=== PATIENT | female | born 1980 | race African-American/Black ===

== ENCOUNTER 2017-10-04 14:21 | Emergency (ER) | payer BC, OTHER ==
--- NOTE | 2017-10-04 15:16 | ER Document Report ---
ED Medical Screen (RME) - General Chief Complaint: Chest Pain Stated Complaint: CHEST PAIN Time Seen by Provider: 10/04/17 15:06 Notes: 37-year-old female patient with lupus on Plaquenil, methotrexate, and low-dose prednisone. She reports right sided chest pain that goes down the right arm which is worse with movement. There is some shortness of breath. There is no known history of injury or heavy lifting anytime recently. The right anterior chest wall and the pectoralis muscle are tender to palpate. The right upper arm is tender to palpate. She states she is unable to tell if this feels like it may be lupus related flareup. I have greeted and performed a rapid initial assessment of this patient. A comprehensive ED assessment and evaluation of the patient, analysis of test results and completion of the medical decision making process will be conducted by additional ED providers. TRAVEL OUTSIDE OF THE [place] IN LAST 30 DAYS: Yes - Related Data Allergies/Adverse Reactions: tomato Allergy (Verified 10/04/17 14:27) HIVES, ITCHING Past Medical History - Social History Chew tobacco use (# tins/day): No Frequency of alcohol use: None Drug Abuse: None Pulmonary Medical History: Reports: Hx Asthma - A CHILD Denies: Hx Tuberculosis Renal/ Medical History: Reports: Hx Ovarian Cysts. Denies: Hx Peritoneal Dialysis GI Medical History: Denies: Hx Hepatitis Infectious Medical History: Denies: Hx Hepatitis Past Surgical History: Reports: Hx Appendectomy - 2008, Hx Tubal Ligation - Immunizations Immunizations up to date: No Hx Diphtheria, Pertussis, Tetanus Vaccination: No Physical Exam - Vital signs Vitals: Temp Pulse Resp BP Pulse Ox 98.4 F 90 18 150/90 H 100 10/04/17 14:35 10/04/17 14:35 10/04/17 14:35 10/04/17 14:35 10/04/17 14:35 Course - Vital Signs Vital signs: Temp Pulse Resp BP Pulse Ox 98.4 F 90 18 150/90 H 100 10/04/17 14:35 10/04/17 14:35 10/04/17 14:35 10/04/17 14:35 10/04/17 14:35
[2017-10-04 15:36] LABS: ABSOLUTE EOSINOPHILS # (AUTO) 0.1 10^3/uL (0.0-0.6); ABSOLUTE LYMPHOCYTES (AUTO) 1.5 10^3/uL (0.5-4.7); ABSOLUTE MONOCYTES (AUTO) 0.8 10^3/uL (0.1-1.4); ABSOLUTE NEUT (AUTO) 2.3 10^3/uL (1.7-8.2); BASOPHILS % (AUTO) 0.5 % (0-2); EOSINOPHILS % (AUTO) 1.6 % (0-6); HEMATOCRIT 35.3 % (36.0-47.0); HEMOGLOBIN 11.6 g/dL (12.0-15.5); LYMPHOCYTES % (AUTO) 32.6 % (13-45); MEAN CORPUSCULAR HEMOGLOBIN 27.7 pg (27.0-33.4); MEAN CORPUSCULAR HGB CONC 32.8 g/dL (32.0-36.0); MEAN CORPUSCULAR VOLUME 85 fl (80-97); MONOCYTES % (AUTO) 17.4 % (3-13); PLATELET COUNT 236 10^3/uL (150-450); RED BLOOD COUNT 4.18 10^6/uL (3.72-5.28); RED CELL DISTRIBUTION WIDTH 13.7 % (11.5-14.0); SEGMENTED NEUTROPHILS % (AUTO) 47.9 % (42-78); TOTAL CELLS COUNTED % (AUTO) 100 %; WHITE BLOOD COUNT 4.7 10^3/uL (4.0-10.5)
--- NOTE | 2017-10-04 15:47 | RADIOLOGY REPORT (SQ) ---
EXAM DESCRIPTION: CHEST 2 VIEWS COMPLETED DATE/TIME: 10/04/2017 3:40 pm REASON FOR STUDY: R chest pain, SLE, on MTX,pred,plaquenil COMPARISON: 05/24/2011 EXAM PARAMETERS: NUMBER OF VIEWS: two views TECHNIQUE: Digital Frontal and Lateral radiographic views of the chest acquired. RADIATION DOSE: NA LIMITATIONS: none FINDINGS: LUNGS AND PLEURA: No opacities, masses or pneumothorax. No pleural effusion. MEDIASTINUM AND HILAR STRUCTURES: No masses or contour abnormalities. HEART AND VASCULAR STRUCTURES: Heart normal size. No evidence for failure. BONES: No acute findings. HARDWARE: None in the chest. OTHER: No other significant finding. IMPRESSION: NO ACUTE RADIOGRAPHIC FINDING IN THE CHEST. TECHNICAL DOCUMENTATION: JOB ID: [id number] [employer]- All Rights Reserved Reading location - IP/workstation name: [email or web address]
[2017-10-04 15:50] LABS: ALANINE AMINOTRANSFERASE 20 U/L (9-52); ALBUMIN 4.3 g/dL (3.5-5.0); ALKALINE PHOSPHATASE 51 U/L (38-126); ANION GAP 9 (5-19); ASPARTATE AMINO TRANSFERASE 16 U/L (14-36); BILIRUBIN,DIRECT 0.3 mg/dL (0.0-0.4); BILIRUBIN,TOTAL 0.3 mg/dL (0.2-1.3); BLOOD UREA NITROGEN 9 mg/dL (7-20); CALCIUM 9.5 mg/dL (8.4-10.2); CARBON DIOXIDE 27 mmol/L (22-30); CHLORIDE 106 mmol/L (98-107); GLUCOSE 111 mg/dL (75-110); POTASSIUM 3.4 mmol/L (3.6-5.0); SODIUM 142.1 mmol/L (137-145); TOTAL PROTEIN 7.9 g/dL (6.3-8.2)
[2017-10-04] MEDS ORDERED: MORPHINE SULFATE 10 MG/ML INJ IM ONE (16:03)
[2017-10-04 16:12] LABS: ERYTHROCYTE SEDIMENTATION RATE 40 mm/hr (0-20)
--- NOTE | 2017-10-04 16:58 | ER Document Report ---
ED General - General Chief Complaint: Chest Pain Stated Complaint: CHEST PAIN Time Seen by Provider: 10/04/17 15:06 TRAVEL OUTSIDE OF THE [place] IN LAST 30 DAYS: Yes - HPI Notes: 37-year-old female with a history of lupus as well as remote PE, not currently anticoagulated, presents with pleuritic chest pain. Patient describes onset this morning of a right anterolateral chest pain that now radiates toward her shoulder, sharp and pleuritic, no cough, fever, chills or sweats. She denies any history of acute DVT. She indicates she is not currently anticoagulated, her lupus is under control. Nonradiating except as described. No other modifying factors, no other associated symptoms, no other provocative or palliative factors. Patient was seen by physician in triage had ordered some basic labs and x-ray and EKG. - Related Data Allergies/Adverse Reactions: tomato Allergy (Verified 10/04/17 14:27) HIVES, ITCHING Past Medical History - Social History Smoking Status: Never Smoker Chew tobacco use (# tins/day): No Frequency of alcohol use: None Drug Abuse: None Family History: Reviewed & Not Pertinent Patient has suicidal ideation: No Patient has homicidal ideation: No Pulmonary Medical History: Reports: Hx Asthma - A CHILD Denies: Hx Tuberculosis Other: Previous pulmonary embolism Renal/ Medical History: Reports: Hx Ovarian Cysts. Denies: Hx Peritoneal Dialysis GI Medical History: Denies: Hx Hepatitis Infectious Medical History: Denies: Hx Hepatitis Past Surgical History: Reports: Hx Appendectomy - 2008, Hx Tubal Ligation - Immunizations Immunizations up to date: No Hx Diphtheria, Pertussis, Tetanus Vaccination: No Review of Systems - Review of Systems Notes: Review of systems as in the history of present illness, otherwise negative. Physical Exam - Vital signs Vitals: Temp Pulse Resp BP Pulse Ox 98.4 F 90 18 150/90 H 100 10/04/17 14:35 10/04/17 14:35 10/04/17 14:35 10/04/17 14:35 10/04/17 14:35 - Notes Notes: 37-year-old female the after mentioned symptoms, patient certainly is at moderate at least, if not high risk for pulmonary embolism given history and exam findings. Consider atypical ACS, this is less likely. May be related to lupus flare, costochondritis, chest pain or esophageal spasm. To review basic labs, check x-ray, EKG. Of note, patient does not meet low risk criteria for dimer rule out, I will likely proceed with CTA. Course - Re-evaluation Re-evalutation: 37-year-old female who presents with the after mentioned symptoms. Her pain is somewhat atypical for ACS. Given the atypical nature and prolonged constant nature over 12 hours, I think a single negative troponin makes the posttest probability for ACS acceptably low. Patient is moderate to high risk for PE, dimers not appropriate, given her pleuritic pain will proceed with CT imaging. Otherwise review of her labs show unremarkable CBC, unremarkable chemistries, normal troponin. 12 Lead ECG Analysis A 12 lead ECG is obtained and shows a sinus rhythm, normal QRS, normal QTC. There are nonspecific ST-T changes, no evidence of acute ischemic changes. Mostly unchanged when compared with the previous ECG. Received IV analgesics, she has had substantial improvement and feels much better. She is resting comfortably at this time. Her chest x-ray is unremarkable. She is discharged home and will follow closely with her primary care physician, return if worsening. - Vital Signs Vital signs: Temp Pulse Resp BP Pulse Ox 98.4 F 68 18 132/97 H 99 10/04/17 14:35 10/04/17 18:40 10/04/17 18:40 10/04/17 18:40 10/04/17 18:40 - Laboratory Result Diagrams: 10/04/17 15:24 10/04/17 15:24 Laboratory results interpreted by me: 10/04/17 10/04/17 15:24 15:24 Hgb 11.6 L Hct 35.3 L Monocytes % 17.4 H ESR 40 H Potassium 3.4 L Glucose 111 H Discharge - Discharge Clinical Impression: Atypical chest pain Condition: Good Disposition: HOME, SELF-CARE Instructions: Chest Pain of Unclear Cause ([facility]) Prescriptions: Tramadol HCl 50 mg PO Q6 #10 tablet
[2017-10-04] MEDS ORDERED: MORPHINE SULFATE 10 MG/ML INJ IV ONE (17:05)
[2017-10-04] MEDS ORDERED: ONDANSETRON HCL INJ/PF 4 MG/2 ML SDV IV ONE (17:52)
--- NOTE | 2017-10-04 18:06 | RADIOLOGY REPORT (SQ) ---
EXAM DESCRIPTION: CTA CHEST COMPLETED DATE/TIME: 10/04/2017 5:48 pm REASON FOR STUDY: Pleuritic chest pain, high risk for PE COMPARISON: Chest x-ray 10/04/2017 CTA chest 05/24/2011 TECHNIQUE: CT scan of the chest performed using helical scanning technique with dynamic intravenous contrast injection. Images reviewed with lung, soft tissue and bone windows. Reconstructed coronal and sagittal MPR images reviewed. Additional 3 dimensional post-processing performed to develop Maximal Intensity Projection images (RI P). All images stored on PACS. All CT scanners at this facility use dose modulation, iterative reconstruction, and/or weight based d osing when appropriate to reduce radiation dose to as low as reasonably achievable (ALARA). [facility]: Dose Right [facility]: CareDose [facility]: Dose Right [facility]: Teradose 4D [facility]: Webmedx CONTRAST TYPE AND DOSE: contrast/concentration: Isovue 370.00 mg/ml; Total Contrast Delivered: 81.0 ml; Total Saline Delivered: 90.1 ml Contrast bolus optimized for the pulmonary arteries. Not diagnostic for the aorta. RENAL FUNCTION: BUN 9 creatinine 0.7 RADIATION DOSE: CT Rad equipment meets quality standard of care and radiation dose reduction techniq ues were employed. CTDIvol: 6.6 - 33.1 mGy. DLP: 552 mGy-cm. . LIMITATIONS: None. FINDINGS: LUNGS AND PLEURA: No masses, infiltrates, pneumothorax. No pleural effusions, calcificati ons. AORTA AND GREAT VESSELS: No aneurysm. Contrast bolus not optimized for the aorta. HEART: No pericardial effusion. No significant coronary artery calcifications. PULMONARY ARTERIES: No emboli visualized in the main pulmonary arteries or the segmental branches. HILAR AND MEDIASTINAL STRUCTURES: No identified masses or abnormal nodes. HARDWARE: None in the chest. UPPER ABDOMEN: No significant findings. Limited exam. THYROID AND OTHER SOFT TISSUES: No masses. No adenopathy. BONES: No acute or significant finding. 3D MIPS: Confirm above findings. OTHER: No other significant finding. IMPRESSION: NORMAL CTA OF THE CHEST. NO PULMONARY EMBOLI. COMMENT: Quality ID # [id number]: Final reports with documentation of one or more dose reduction techniques (e.g., Automated exposure control, adjustment of the mA and/or kV according to patient size, use of iterative reconstruction technique) TECHNICAL DOCUMENTATION: JOB ID: [id number] [employer]- All Rights Reserved Reading location - IP/workstation name: [email or web address]
[2017-10-04 18:59] VITALS: BP 132/97
--- NOTE | 2017-10-04 22:34 | EKG REPORT ---
SEVERITY:- BORDERLINE ECG - SINUS RHYTHM PROBABLE LEFT ATRIAL ABNORMALITY : Confirmed by: Francy Ochoa 04-Oct-2017 22:33:44
== END 2017-10-04 18:45 | disposition home or self-care (01) ==
LOC: ER 14:21
DX: R07.89 Other chest pain (principal); R07.81 Pleurodynia; J45.909 Unspecified asthma, uncomplicated
CPT/HCPCS: 93005; 99285; 96374; 96375; 36415; 82553; 85025; 85652; 80053; 84484; 71046; 71275; 93010; J2270; J2405

== ENCOUNTER → 2018-12-28 | Outpatient (CLI) | payer OTHER ==
--- NOTE | 2018-12-28 12:28 | RADIOLOGY REPORT (SQ) ---
EXAM DESCRIPTION: U/S NON-OB PELVIS TV W/O DOP COMPLETED DATE/TIME: 12/28/2018 8:13 am REASON FOR STUDY: RLQ PAIN (R10.31) R10.31 RIGHT LOWER QUADRANT PAIN COMPARISON: 06/06/2012 TECHNIQUE: Dynamic and static grayscale images acquired of the pelvis via transvaginal approach and recorded on PACS. Additional selected color Doppler and spectral images recorded. LIMITATIONS: None. FINDINGS: UTERUS: Contour normal. There is a 13 mm fibroid at the uterine fundus. ENDOMETRIAL STRIPE: No focal or generalized thickening. No masses. CERVIX: 3 cm. No nabothian cysts. RIGHT OVARY AND DOPPLER: Normal size. No worrisome masses. Normal arterial vascular flow without evid ence for torsion. LEFT OVARY AND DOPPLER: Normal size. There is a 2.8 x 2.3 x 2.4 cm hyperechoic mass containing an 8 mm cystic component. Normal arterial vascular flow without evidence for torsion. FREE FLUID: None noted. OTHER: No other significant finding. MEASUREMENTS: UTERUS: 10.5 x 6.8 x 5.4 cm. ENDOMETRIAL STRIPE: 14 mm. RIGHT OVARY: 2.7 x 2.6 x 1.8 cm. LEFT OVARY: 4.1 x 2.9 x 3.2 cm. IMPRESSION: Small uterine fibroid. 28 mm hyperechoic lesion in the left ovary with an 8 mm cystic c omponent. Possible ovarian dermoid. TECHNICAL DOCUMENTATION: JOB ID: [id number] [employer]- All Rights Reserved Rev-11/18 Reading location - IP/workstation name: [email or web address]
== END ==
LOC: RAD 07:19
PROVIDERS: ATTEND Family Medicine
DX: R10.31 Right lower quadrant pain (principal)
CPT/HCPCS: 76830

== ENCOUNTER → 2019-01-15 | Outpatient (CLI) | payer OTHER ==
--- NOTE | 2019-01-15 16:32 | RADIOLOGY REPORT (SQ) ---
EXAM DESCRIPTION: CT ABD/PELVIS COMBO COMPLETED DATE/TIME: 01/15/2019 3:29 pm REASON FOR STUDY: R10.31 RIGHT LOWER QUADRANT PAIN R10.31 RIGHT LOWER QUADRANT PAIN COMPARISON: None. TECHNIQUE: CT scan of the abdomen and pelvis performed with and without intravenous contrast, and wi th oral contrast. Contrasted imaging performed helical scanning technique and dynamic intravenous con trast injection. Images reviewed with lung, soft tissue, and bone windows. Reconstructed coronal and sagittal MPR images reviewed. Delayed images for evaluation of the urinary system also acquired. All images stored on PACS. All CT scanners at this facility use dose modulation, iterative reconstruction, and/or weight based d osing when appropriate to reduce radiation dose to as low as reasonably achievable (ALARA). [facility]: Dose Right [facility]: CareDose [facility]: Dose Right [facility]: Teradose 4D [facility]: [employer] CONTRAST TYPE AND DOSE: contrast/concentration: Isovue 350.00 mg/ml; Total Contrast Delivered: 99.0 ml; Total Saline Delivered: 64.0 ml RENAL FUNCTION: GFR > 60. RADIATION DOSE: CT Rad equipment meets quality standard of care and radiation dose reduction techniq ues were employed. CTDIvol: 14.9 - 16.5 mGy. DLP: 2505 mGy-cm. . LIMITATIONS: None. FINDINGS: NON-CONTRASTED IMAGING: No significant renal or bladder calcifications. No other significa nt organ calcifications. POST-CONTRASTED IMAGING: LOWER CHEST: No significant findings. No nodules or infiltrates. LIVER: Normal size. No masses. No dilated ducts. SPLEEN: Normal size. No focal lesions. PANCREAS: No masses. No significant calcifications. No adjacent inflammation or peripancreatic fluid collections. Pancreatic duct not dilated. GALLBLADDER: No identified stones by CT criteria. No inflammatory changes to suggest cholecystitis. ADRENAL GLANDS: No significant masses or asymmetry. RIGHT KIDNEY AND URETER: No solid masses. No significant calcifications. No hydronephrosis or hyd roureter. LEFT KIDNEY AND URETER: No solid masses. No significant calcifications. No hydronephrosis or hydr oureter. AORTA AND VESSELS: No aneurysm. No dissection. Renal arteries, SMA, celiac without stenosis. RETROPERITONEUM: No retroperitoneal adenopathy, hemorrhage or masses. BOWEL AND PERITONEAL CAVITY: No masses or inflammatory changes. No free fluid or peritoneal masses. APPENDIX: Surgically absent. PELVIS: 3.3 cm diameter heterogeneous fat containing lesion left adnexa. No calcifications. No pelv ic adenopathy. ABDOMINAL WALL: No masses. No hernias. BONES: No significant or acute findings. OTHER: No other significant finding. IMPRESSION: Left ovarian dermoid. TECHNICAL DOCUMENTATION: JOB ID: [id number] Quality ID # [id number]: Final reports with documentation of one or more dose reduction techniques (e.g., Au tomated exposure control, adjustment of the mA and/or kV according to patient size, use of iterative reconstruction technique) 2010 [employer]- All Rights Reserved Reading location - IP/workstation name: [email or web address]-
== END ==
LOC: RAD 14:57
PROVIDERS: ATTEND Family Medicine
DX: R10.31 Right lower quadrant pain (principal); D27.1 Benign neoplasm of left ovary
CPT/HCPCS: 74178

== ENCOUNTER 2019-03-23 05:32 | Day surgery (SDC) | payer OTHER ==
[2019-03-20 11:30] LABS: HEMATOCRIT 34.8 % (36.0-47.0); HEMOGLOBIN 11.4 g/dL (12.0-15.5); MEAN CORPUSCULAR HEMOGLOBIN 26.8 pg (27.0-33.4); MEAN CORPUSCULAR HGB CONC 32.7 g/dL (32.0-36.0); MEAN CORPUSCULAR VOLUME 82 fl (80-97); PLATELET COUNT 212 10^3/uL (150-450); RED BLOOD COUNT 4.25 10^6/uL (3.72-5.28); RED CELL DISTRIBUTION WIDTH 14.5 % (11.5-14.0)
[2019-03-20 11:36] LABS: APPEARANCE,URINE SLIGHTLY-CLOUDY; BILIRUBIN,URINE NEGATIVE (NEGATIVE); COLOR,URINE YELLOW; GLUCOSE, URINE NEGATIVE (NEGATIVE); KETONES,URINE NEGATIVE (NEGATIVE); LEUKOCYTE ESTERASE,URINE NEGATIVE (NEGATIVE); NITRITE,URINE NEGATIVE (NEGATIVE); PROTEIN,URINE 30 mg/dL (NEGATIVE); URINE SPECIFIC GRAVITY 1.014; UROBILINOGEN,URINE NEGATIVE mg/dL (<2.0)
[~2019-03-23 05:32] MED LIST: LACTATED RINGERS 1000 ML IV PRN
[2019-03-23] MEDS ORDERED: FENTANYL CITRATE INJ/PF 250 MCG/5 ML AMPULE ONE (06:41)
[2019-03-23] MEDS ORDERED: PROPOFOL INJ 200 MG/20 ML VIAL IV ONE (06:41)
[2019-03-23] MEDS ORDERED: MIDAZOLAM 2 MG/2 ML INJ ONE (06:41)
[2019-03-23] MEDS ORDERED: DIPHENHYDRAMINE HCL 50 MG/ML VIAL IV PRN (06:59)
[2019-03-23] MEDS ORDERED: MEPERIDINE HCL/PF INJ 25 MG/1 ML DISP.SYRIN IV PRN (06:59)
[2019-03-23] MEDS ORDERED: FENTANYL CITRATE INJ/PF 100 MCG/2 ML AMPUL IV PRN ×3 (06:59)
[2019-03-23] MEDS ORDERED: PROMETHAZINE HCL INJ 25 MG/1 ML VIAL IV PRN ×3 (06:59→10:14)
[2019-03-23] MEDS ORDERED: OXYCODONE-ACETAMINOPHEN 5-325 MG TABLET PO PRN ×3 (06:59→10:13)
[2019-03-23] MEDS ORDERED: BUPIVACAINE HCL 0.25 % INJ/PF (2.5 MG/1 ML) 30 ML VIAL ONE (07:42)
[2019-03-23] MEDS ORDERED: ACETAMINOPHEN 1,000 MG/100 ML RTUPB IV ONE (09:54)
--- NOTE | 2019-03-23 09:57 | Operative Report ---
Operative Report DATE OF SURGERY: 03/23/19 PREOPERATIVE DIAGNOSIS: 1. Probable left dermoid cyst. 2. Family history of breast cancer POSTOPERATIVE DIAGNOSIS: Same OPERATION: Laparoscopic bilateral salpingo-oophorectomy SURGEON: NILSON VILLAVICENCIO ANESTHESIA: GA TISSUE REMOVED OR ALTERED: Bilateral fallopian tubes and ovaries COMPLICATIONS: Bleeding at the pedicles, bilaterally QUANTITATIVE BLOOD LOSS: 100 INTRAOPERATIVE FINDINGS: Enlarged, boggy uterus; tiny fibroid at the right fundus; left ovarian cyst measuring approximately 5 x 4 cm; normal-appearing right ovary; normal-appearing bilateral tubes PROCEDURE: The patient was taken to the operating room where general anesthesia was obtained without difficulty. She was then placed in dorsal supine lithotomy position and prepped and draped in the normal sterile fashion. Hoffman speculum was then placed in the patient's vagina and the anterior lip of the cervix grasped with a single-tooth tenaculum. An acorn uterine manipulator was then advanced into the uterus to provide a means of manipulation of the uterus. The tenaculum was then removed from the patient's cervix and vagina. Attention was then turned to the patient's abdomen where a 5 mm skin incision was then made in the umbilicus. The Optiview trocar with 0 laparoscope was then advanced without difficulty under direct visualization with the Optiview trocar. This was performed while tenting the abdominal wall. Intraperitoneal placement was confirmed by the direct visualization. Pneumoperitoneum was then obtained with approximately 4 L carbon dioxide gas. Survey of the patient's abdomen and pelvis revealed findings as noted above. Uterus was slightly enlarged and boggy. Survey of the pelvis showed a left, large ovarian cyst. The right ovary appeared grossly normal. Pictures were taken. Two 5 mm lateral ports The umbilical port was then converted to a 10 mm port. The right infundibulopelvic then identified and grasped. The Enseal was used to transect the tube and ovary. Hemostasis was not noted. The right tube and ovary were t hen placed in the posterior cul-de-sac, for later retrieval. Attention was then turned to the left fallopian tube and ovary, which was transected in the same manner. Bleeding was also noted at this pedicle. The Endo MELIZA bag was then placed through the umbilical port and the right fallopian tube was placed in the bag and brought through the umbilical port. A separate Endo MELIZA bag was placed through the umbilical port and the left tube and ovary were retrieved. The abdomen was copiously irrigated with warm saline. I then placed several vascular clips at the uterus to control the bleeding, both sides. There was still oozing, therefore placed Enseal in both of these areas. The bleeding subsided for the most part, I then placed Surgicel on both sides. The abdomen was then irrigated again and no active bleeding was noted. Pictures were then taken. The CO2 gas was then turned off and allowed to escape from the patient's abdomen. All trocars were then removed. The fascia at the umbilical port was repaired with 0 Vicryl. The skin at all trocar sites were closed with 4-0 Vicryl in a subcuticular fashion with overlying Dermabond. No antibiotics were indicated for this procedure. After completion of skin closure of the trocar sites attention was then turned to the vagina where the acorn uterine manipulator was removed and the bivalve speculum was replaced. Monsel's solution was applied to the tenaculum sites for hemostasis and the speculum was removed. Sponge, lap, needle and instrument counts were correct 3. The patient tolerated the procedure well and was taken to the recovery area awake and in stable condition.
[2019-03-23] MEDS: FENTANYL CITRATE INJ/PF 100 MCG/2 ML AMPUL ONE ×2 (10:00→10:05)
[2019-03-23] MEDS ORDERED: ONDANSETRON HCL INJ/PF 4 MG/2 ML SDV IV PRN (10:13)
[2019-03-23] MEDS ORDERED: HYDROMORPHONE HCL INJ/PF 2 MG/ML AMPULE ONE (10:14)
[2019-03-23] MEDS ORDERED: OXYCODONE-ACETAMINOPHEN 5-325 MG TABLET ONE (10:49)
[2019-03-23 12:37] VITALS: BP 134/77
[2019-03-23] MEDS ORDERED: ONDANSETRON HCL INJ/PF 4 MG/2 ML SDV ONE (20:22)
[2019-03-23] MEDS ORDERED: LIDOCAINE 2% INJ-PF (20 MG/ML) 2 ML AMPUL ONE (20:22)
[2019-03-23] MEDS ORDERED: DEXAMETHASONE SOD PHOSPHATE INJ 4 MG/1 ML VIAL ONE (20:22)
[2019-03-23] MEDS ORDERED: NEOSTIGMINE METHYLSULFATE 10 MG/10 ML VIAL ONE (20:22)
[2019-03-23] MEDS ORDERED: ROCURONIUM BROMIDE INJ 50 MG/5 ML VIAL IV ONE (20:22)
[2019-03-23] MEDS ORDERED: GLYCOPYRROLATE 1 MG/5 ML VIAL ONE (20:22)
== END 2019-03-23 11:50 | disposition home or self-care (01) ==
LOC: OROUT 05:32
PROVIDERS: ATTEND Obstetrics & Gynecology
DX: N83.01 Follicular cyst of right ovary (principal); N83.11 Corpus luteum cyst of right ovary; D27.1 Benign neoplasm of left ovary; N94.19 Other specified dyspareunia; Z79.899 Other long term (current) drug therapy; Z01.818 Encounter for other preprocedural examination; Z80.3 Family history of malignant neoplasm of breast
CPT/HCPCS: 36415; 85027; 81005; 81025; 88305 ×2; 58661; J2250; J3490 ×3; J1100; J3010 ×2; J2710; J1170; J2405; J2704; J0131; 840

== ENCOUNTER → 2019-12-20 | Outpatient (CLI) | payer OTHER ==
--- NOTE | 2019-12-20 14:43 | RADIOLOGY REPORT (SQ) ---
EXAM DESCRIPTION: LUMBAR SPINE 2 VIEWS IMAGES COMPLETED DATE/TIME: 12/20/2019 2:27 pm REASON FOR STUDY: LOW BACK PAIN M54.5 LOW BACK PAIN COMPARISON: None. NUMBER OF VIEWS: Two views. TECHNIQUE: AP and lateral radiographic images acquired of the lumbar spine. LIMITATIONS: None. FINDINGS: MINERALIZATION: Normal. SEGMENTATION: Normal. No transitional anatomy. ALIGNMENT: Mild anterolisthesis of L4 on L5. VERTEBRAE: Maintained height. No fracture or worrisome bone lesion. DISCS: Mild narrowing of the L5-S1 disc. POSTERIOR ELEMENTS: Pedicles and facets are intact. No pars defect or posterior arch defects. HARDWARE: None in the spine. PARASPINAL SOFT TISSUES: Normal. PELVIS: Intact as visualized. No fractures or worrisome bone lesions. SI joints intact. OTHER: No other significant finding. IMPRESSION: Mild anterolisthesis of L4 on L5. Mild L5-S1 disc changes. TECHNICAL DOCUMENTATION: JOB ID: [id number] 2010 [employer]- All Rights Reserved Reading location - IP/workstation name: [email or web address]
== END ==
LOC: RAD 13:39
PROVIDERS: ATTEND Family Medicine
DX: M51.86 Other intervertebral disc disorders, lumbar region (principal); M54.5 Low back pain
CPT/HCPCS: 72100

== ENCOUNTER 2020-04-08 09:45 | Emergency (ER) | payer OTHER ==
[2020-04-08 09:54] VITALS: BP 152/72
[2020-04-08] MEDS ORDERED: ONDANSETRON 4 MG TAB.RAPDIS PO ONE ×2 (11:00→14:00)
[2020-04-08] MEDS ORDERED: HYDROCODONE/ACETAMINOPHEN 5-325 MG TABLET PO ONE (11:03)
--- NOTE | 2020-04-08 11:04 | ER Document Report ---
ED Medical Screen (RME) - General Chief Complaint: Abdominal Pain Stated Complaint: ABDOMINAL PAIN Time Seen by Provider: 04/08/20 10:55 Primary Care Provider: JO ANN CORTES MD [Primary Care Provider] - Follow up as needed TRAVEL OUTSIDE OF THE [place] IN LAST 30 DAYS: No - HPI Notes: 04/08/20 11:01 40-year-old female with a history of lupus and partial hysterectomy and appen dectomy presents the emergency room for complaints of right upper quadrant abdominal pain that starting to radiate to her back that is worse after eating for the last 3 days. Patient states that she has not had a bowel movement since Tuesday, denies having any flatus and reports moving her bowels twice a week. Reports nausea and denies any vomiting or diarrhea. Patient takes Plaquenil and methotrexate for her lupus. Reports pain is 3 out of 5, she has not been eating or drinking as much to minimize the pain, states she did have some soup this morning that aggravated her abdominal pain I have greeted and performed a rapid initial assessment of this patient. A comprehensive ED assessment and evaluation of the patient, analysis of test results and completion of the medical decision making process will be conducted by additional ED providers. PHYSICAL EXAMINATION: GENERAL: Well-appearing, well-nourished and in mild distress HEAD: Atraumatic, normocephalic. EYES: Pupils equal round extraocular movements intact, conjunctiva are normal. NECK: Normal range of motion CV: s1, s2 regular LUNGS: No respiratory distress abd: RUQ abd pain on palpation, no cva tenderness appreciated bilaterally - Related Data Allergies/Adverse Reactions: tomato Allergy (Verified 04/08/20 10:55) HIVES, ITCHING Home Medications: plaquenil, methotrexate Past Medical History - Social History Chew tobacco use (# tins/day): No Frequency of alcohol use: None Drug Abuse: None - Past Medical History Cardiac Medical History: Denies: Hx Coronary Artery Disease, Hx Heart Attack, Hx Hypertension Pulmonary Medical History: Reports: Hx Asthma - A CHILD Denies: Hx Bronchitis, Hx COPD, Hx Pneumonia, Hx Tuberculosis Neurological Medical History: Denies: Hx Cerebrovascular Accident, Hx Seizures Renal/ Medical History: Reports: Hx Ovarian Cysts. Denies: Hx Peritoneal Dialysis GI Medical History: Denies: Hx Hepatitis Musculoskeltal Medical History: Denies Hx Arthritis, Reports Hx Systemic Lupus Erythematosus Infectious Medical History: Denies: Hx Hepatitis Past Surgical History: Reports: Hx Appendectomy - 2009, Hx Tubal Ligation - Immunizations Immunizations up to date: No Hx Diphtheria, Pertussis, Tetanus Vaccination: Yes Physical Exam - Vital signs Vitals: Temp Pulse Resp BP Pulse Ox 98.5 F 86 16 152/72 H 100 04/08/20 09:53 04/08/20 09:53 04/08/20 09:53 04/08/20 09:53 04/08/20 09:53 Course - Vital Signs Vital signs: Temp Pulse Resp BP Pulse Ox 98.5 F 86 16 152/72 H 100 04/08/20 09:53 04/08/20 09:53 04/08/20 09:53 04/08/20 09:53 04/08/20 09:53 Doctor's Discharge - Discharge Referrals: JO ANN CORTES MD [Primary Care Provider] - Follow up as needed
[2020-04-08 11:31] LABS: APPEARANCE,URINE CLEAR; BILIRUBIN,URINE NEGATIVE (NEGATIVE); COLOR,URINE YELLOW; GLUCOSE, URINE NEGATIVE (NEGATIVE); KETONES,URINE NEGATIVE (NEGATIVE); LEUKOCYTE ESTERASE,URINE SMALL (NEGATIVE); NITRITE,URINE NEGATIVE (NEGATIVE); PROTEIN,URINE NEGATIVE (NEGATIVE); URINE SPECIFIC GRAVITY 1.011; UROBILINOGEN,URINE NEGATIVE mg/dL (<2.0)
[2020-04-08 11:45] LABS: ABSOLUTE EOSINOPHILS # (AUTO) 0.1 10^3/uL (0.0-0.6); ABSOLUTE LYMPHOCYTES (AUTO) 0.9 10^3/uL (0.5-4.7); ABSOLUTE MONOCYTES (AUTO) 0.7 10^3/uL (0.1-1.4); ABSOLUTE NEUT (AUTO) 2.5 10^3/uL (1.7-8.2); BASOPHILS % (AUTO) 0.5 % (0-2); EOSINOPHILS % (AUTO) 1.5 % (0-6); HEMATOCRIT 35.1 % (36.0-47.0); HEMOGLOBIN 12.1 g/dL (12.0-15.5); LYMPHOCYTES % (AUTO) 21.4 % (13-45); MEAN CORPUSCULAR HGB CONC 34.4 g/dL (32.0-36.0); MEAN CORPUSCULAR VOLUME 84 fl (80-97); MONOCYTES % (AUTO) 16.6 % (3-13); PLATELET COUNT 212 10^3/uL (150-450); RED BLOOD COUNT 4.15 10^6/uL (3.72-5.28); RED CELL DISTRIBUTION WIDTH 14.3 % (11.5-14.0); TOTAL CELLS COUNTED % (AUTO) 100 %; WHITE BLOOD COUNT 4.2 10^3/uL (4.0-10.5)
[2020-04-08 11:50] LABS: ALBUMIN 4.6 g/dL (3.5-5.0); ALKALINE PHOSPHATASE 82 U/L (38-126); ANION GAP 13 (5-19); ASPARTATE AMINO TRANSFERASE 23 U/L (14-36); BILIRUBIN,DIRECT 0.3 mg/dL (0.0-0.4); BILIRUBIN,TOTAL 0.6 mg/dL (0.2-1.3); BLOOD UREA NITROGEN 12 mg/dL (7-20); CALCIUM 9.7 mg/dL (8.4-10.2); CARBON DIOXIDE 28 mmol/L (22-30); CHLORIDE 102 mmol/L (98-107); GLUCOSE 93 mg/dL (75-110); POTASSIUM 4.3 mmol/L (3.6-5.0); TOTAL PROTEIN 8.1 g/dL (6.3-8.2)
--- NOTE | 2020-04-08 12:18 | RADIOLOGY REPORT (SQ) ---
EXAM DESCRIPTION: U/S ABDOMEN LIMITED W/O DOP IMAGES COMPLETED DATE/TIME: 04/08/2020 11:58 am REASON FOR STUDY: RUQ abd pain, worse after eating x 3 days COMPARISON: None. TECHNIQUE: Dynamic and static grayscale images acquired of the abdomen and recorded on PACS. Brandoo jim selected color Doppler and spectral images recorded. LIMITATIONS: None. FINDINGS: PANCREAS: No masses. Visualized pancreatic duct normal caliber. LIVER: 1.5 cm homogeneous echogenic lesion in the right lobe. Echotexture normal. LIVER VASCULATURE: Normal directional flow of the main portal vein and hepatic veins. GALLBLADDER: No stones. Normal wall thickness. No pericholecystic fluid. ULTRASOUND-DETECTED SIMS'S SIGN: Negative. INTRAHEPATIC DUCTS AND COMMON DUCT: CBD and intrahepatic ducts normal caliber. No filling defects. INFERIOR VENA CAVA: Normal flow. AORTA: No aneurysm. RIGHT KIDNEY: Normal size. Normal echogenicity. No solid or suspicious masses. No hydronephrosis. No calcifications. PERITONEAL AND RIGHT PLEURAL SPACE: No ascites or effusions. OTHER: No other significant findings. IMPRESSION: HEPATIC HEMANGIOMA. OTHERWISE UNREMARKABLE RIGHT UPPER QUADRANT ULTRASOUND. TECHNICAL DOCUMENTATION: JOB ID: [id number] 2010 [employer]- All Rights Reserved Reading location - IP/workstation name: [email or web address]
--- NOTE | 2020-04-08 12:37 | RADIOLOGY REPORT (SQ) ---
EXAM DESCRIPTION: ACUTE ABDOMEN SERIES IMAGES COMPLETED DATE/TIME: 04/08/2020 12:18 pm REASON FOR STUDY: abd pain, no bm or flatus in 5days COMPARISON: None. NUMBER OF VIEWS: Three views. TECHNIQUE: Frontal chest, supine abdomen and upright/decubitus abdomen radiographic images acquired. LIMITATIONS: None. FINDINGS: CHEST: Lungs clear of infiltrates. FREE AIR: None. No abnormal gas collections. BOWEL GAS PATTERN: Nonobstructive pattern. No dilated loops or air fluid levels. CALCIFICATIONS: No suspicious calcifications. HARDWARE: Surgical clips are seen pelvic soft tissues. SOFT TISSUES: No gross mass or suggestion of organomegaly. BONES: No acute fracture. No worrisome bone lesions. OTHER: No other significant finding. IMPRESSION: NO RADIOGRAPHIC EVIDENCE FOR ACUTE ABDOMINAL DISEASE. TECHNICAL DOCUMENTATION: JOB ID: [id number] 2010 [employer]- All Rights Reserved Reading location - IP/workstation name: [email or web address]
[2020-04-08] MEDS ORDERED: MORPHINE SULFATE 10 MG/ML INJ IV ONE (13:18)
--- NOTE | 2020-04-08 13:24 | ER Document Report ---
ED GI/ - General Chief Complaint: Abdominal Pain Stated Complaint: ABDOMINAL PAIN Time Seen by Provider: 04/08/20 10:55 Primary Care Provider: JO ANN CORTES MD [Primary Care Provider] - Follow up as needed Notes: CHIEF COMPLAINT: Right upper quadrant pain for 3 days HPI: 40-year-old obese female presenting to the emergency department complaining of right upper quadrant pain over the last 3 days. Pain is fairly constant. Worsens with eating. No shortness of breath no pleuritic pain. No fever. Patient reports last bowel movement was 3 to 4 days ago. No dysuria. Patient with prior history of appendectomy. No history of diverticular disease ROS: See HPI - all other systems were reviewed and are otherwise negative Constitutional: no fever Eyes: no drainage, no blurred vision ENT: no runny nose, no sore throat Cardiovascular: no chest pain Resp: no SOB, no cough GI: no vomiting, no diarrhea, + abdominal pain : no dysuria Integumentary: no rash Allergy: no hives Musculoskeletal: no extremity pain or swelling Neurological: no numbness/tingling, no weakness MEDICATIONS: I agree with the patient medications as charted by the RN. ALLERGIES: I agree with the allergies as charted by the RN. PAST MEDICAL HISTORY/PAST SURGICAL HISTORY: Reviewed and agree as charted by RN. SOCIAL HISTORY: Reviewed and agree as charted by RN. FAMILY HISTORY: No significant familial comorbid conditions directly related to patient complaint EXAM: Reviewed vital signs as charted by RN. CONSTITUTIONAL: Alert and oriented and responds appropriately to questions. Uncomfortable-appearing; well-nourished HEAD: Normocephalic; atraumatic EYES: PERRL; Conjunctivae clear, sclerae non-icteric ENT: normal nose; no rhinorrhea; moist mucous membranes; pharynx without lesions noted, no uvula edema or deviation, no tonsillar hypertrophy, phonation normal NECK: Supple without meningismus; non-tender; no cervical lymphadenopathy, no masses CARD: RRR; no murmurs, no clicks, no rubs, no gallops; symmetric distal pulses RESP: Normal chest excursion without splinting or tachypnea; breath sounds clear and equal bilaterally; no wheezes, no rhonchi, no rales, pulse oximetry 96% on room air not hypoxic ABD/GI: Obese, normal bowel sounds; non-distended; soft, moderate tenderness right upper quadrant with guarding; no palpable organomegaly or masses. BACK: The back appears normal and is non-tender to palpation, there is no CVA tenderness EXT: Normal ROM in all joints; non-tender to palpation; no cyanosis, no effusions, no edema SKIN: Normal color for age and race; warm; dry; good turgor; no acute lesions noted NEURO: Moves all extremities equally; Motor and sensory function intact PSYCH: The patient's mood and manner are appropriate. Grooming and personal hygiene are appropriate. MDM: 40-year-old female presenting for right upper quadrant pain over the last 3 days fairly constant along with constipation for 3 to 4 days. Patient appears moderately uncomfortable at this time. Her initial work-up through the triage process shows normal urinalysis normal lab work and a normal ultrasound of the right upper quadrant. We will add CT imaging to evaluate for diverticular disease or other intra-abdominal surgical or infectious processes. TRAVEL OUTSIDE OF THE [place] IN LAST 30 DAYS: No - Related Data Allergies/Adverse Reactions: tomato Allergy (Verified 04/08/20 13:42) HIVES, ITCHING Home Medications: plaquenil, methotrexate Past Medical History - Social History Smoking Status: Never Smoker Chew tobacco use (# tins/day): No Frequency of alcohol use: None Drug Abuse: None Family History: Reviewed & Not Pertinent - Past Medical History Cardiac Medical History: Denies: Hx Coronary Artery Disease, Hx Heart Attack, Hx Hypertension Pulmonary Medical History: Reports: Hx Asthma - A CHILD Denies: Hx Bronchitis, Hx COPD, Hx Pneumonia, Hx Tuberculosis Neurological Medical History: Denies: Hx Cerebrovascular Accident, Hx Seizures Renal/ Medical History: Reports: Hx Ovarian Cysts. Denies: Hx Peritoneal Cassie lysis GI Medical History: Denies: Hx Hepatitis Musculoskeletal Medical History: Denies Hx Arthritis, Reports Hx Systemic Lupus Erythematosus Infectious Medical History: Denies: Hx Hepatitis Past Surgical History: Reports: Hx Appendectomy - 2008, Hx Tubal Ligation - Immunizations Immunizations up to date: No Hx Diphtheria, Pertussis, Tetanus Vaccination: Yes Physical Exam - Vital signs Vitals: Temp Pulse Resp BP Pulse Ox 98.5 F 86 16 152/72 H 100 04/08/20 09:53 04/08/20 09:53 04/08/20 09:53 04/08/20 09:53 04/08/20 09:53 Course - Re-evaluation Re-evalutation: 04/08/20 14:55 CT imaging does not show any acute findings. Lab work and ultrasound were negative for acute findings. We discussed this with the patient and her spouse at length. Patient may have constipation, may have a small gastric or duodenal ulcer. Will refer to GI. Will give magnesium citrate in the emergency department. Will place patient on MiraLAX, Bentyl. Return instructions discussed. Patient verbalizes understanding and agreement with the plan 04/08/20 14:56 Patient is more comfortable at time of discharge - Vital Signs Vital signs: Temp Pulse Resp BP Pulse Ox 98.5 F 86 16 152/72 H 100 04/08/20 09:53 04/08/20 09:53 04/08/20 09:53 04/08/20 09:53 04/08/20 09:53 - Laboratory Result Diagrams: 04/08/20 11:06 04/08/20 11:06 Laboratory results interpreted by me: 04/08/20 04/08/20 11:06 11:06 Hct 35.1 L RDW 14.3 H [place] % (Auto) 16.6 H Ur Leukocyte Esterase SMALL H Discharge - Discharge Clinical Impression: Abdominal pain, RUQ Constipation Qualifiers: Constipation type: other constipation type Qualified Code(s): K59.09 - Other constipation Condition: Stable Disposition: HOME, SELF-CARE Additional Instructions: Take the magnesium citrate when you return home. Start MiraLAX. Take Bentyl as prescribed for abdominal pain or spasm. Follow-up closely with gastroenterology for further evaluation and treatment call for appointment. Return to the emergency department for worsening or uncontrolled pain or fever greater than 101 Prescriptions: Dicyclomine HCl [Bentyl 20 mg Tablet] 20 mg PO Q6H PRN #20 tablet PRN Reason: Polyethylene Glycol 3350 [Miralax] 1 cap PO DAILY #527 powder Referrals: JO ANN CORTES MD [Primary Care Provider] - Follow up as needed
--- NOTE | 2020-04-08 14:49 | RADIOLOGY REPORT (SQ) ---
EXAM DESCRIPTION: CT ABD/PELVIS WITH IV ONLY IMAGES COMPLETED DATE/TIME: 04/08/2020 2:32 pm REASON FOR STUDY: RUQ pain COMPARISON: Ultrasound dated 04/08/2020. CT dated 01/15/2019. TECHNIQUE: CT scan of the abdomen and pelvis performed using helical scanning technique with dynamic intravenous contrast injection. No oral contrast. Images reviewed with lung, soft tissue, and bone windows. Reconstructed coronal and sagittal MPR images reviewed. Delayed images for evaluation of the urinary system also acquired. All images stored on PACS. All CT scanners at this facility use dose modulation, iterative reconstruction, and/or weight based d osing when appropriate to reduce radiation dose to as low as reasonably achievable (ALARA). [facility]: Dose Right [facility]: CareDose [facility]: Dose Right [facility]: Teradose 4D [facility]: [facility] CONTRAST TYPE AND DOSE: contrast/concentration: Isovue 350.00 mmol/ml; Total Contrast Delivered: 98. 0 ml; Total Saline Delivered: 32.6 ml RENAL FUNCTION: BUN 12 creatinine 0.81. RADIATION DOSE: CT Rad equipment meets quality standard of care and radiation dose reduction techniq ues were employed. CTDIvol: 12.6 - 15.2 mGy. DLP: 1558 mGy-cm.. LIMITATIONS: None. FINDINGS: LOWER CHEST: No significant findings. No nodules or infiltrates. LIVER: Normal size. Faint low-attenuation lesion in the right lobe (axial series 3, image 25). No d ilated ducts. SPLEEN: Normal size. No focal lesions. PANCREAS: No masses. No significant calcifications. No adjacent inflammation or peripancreatic fluid collections. Pancreatic duct not dilated. GALLBLADDER: No identified stones by CT criteria. No inflammatory changes to suggest cholecystitis. ADRENAL GLANDS: No significant masses or asymmetry. RIGHT KIDNEY AND URETER: No solid masses. No significant calcifications. No hydronephrosis or hyd roureter. LEFT KIDNEY AND URETER: No solid masses. No significant calcifications. No hydronephrosis or hydr oureter. AORTA AND VESSELS: No aneurysm. No dissection. Renal arteries, SMA, celiac without stenosis. RETROPERITONEUM: No retroperitoneal adenopathy, hemorrhage or masses. BOWEL AND PERITONEAL CAVITY: No masses or inflammatory changes. No free fluid or peritoneal masses. APPENDIX: Surgically absent. PELVIS: Numerous surgical clips. No mass. No free fluid. Normal bladder. ABDOMINAL WALL: No masses. No hernias. BONES: No significant or acute findings. OTHER: No other significant finding. IMPRESSION: FAINT LOW-ATTENUATION LESION IN THE RIGHT LOBE OF THE LIVER WHICH CORRESPONDS WITH A HEM ANGIOMA ON ULTRASOUND. NO OTHER SIGNIFICANT OR ACUTE FINDING IN THE ABDOMEN OR PELVIS ON CT SCAN WIT H IV CONTRAST. TECHNICAL DOCUMENTATION: JOB ID: [id number] Quality ID # [id number]: Final reports with documentation of one or more dose reduction techniques (e.g., Au tomated exposure control, adjustment of the mA and/or kV according to patient size, use of iterative reconstruction technique) 2010 [employer]- All Rights Reserved Reading location - IP/workstation name: [email or web address]
[2020-04-08] MEDS ORDERED: MAGNESIUM CITRATE 296 ML BOTTLE PO ONE (14:55)
== END 2020-04-08 15:28 | disposition home or self-care (01) ==
LOC: ER 09:45
DX: K59.00 Constipation, unspecified (principal); D18.03 Hemangioma of intra-abdominal structures; R10.11 Right upper quadrant pain; M32.9 Systemic lupus erythematosus, unspecified; Z79.899 Other long term (current) drug therapy; Z90.49 Acquired absence of other specified parts of digestive tract; Z98.51 Tubal ligation status
CPT/HCPCS: 99285; 96374; 36415; 83690; 84703; 85025; 80053; 81001; 74022; 76705; 74177; J3490; S0119; J2270